=== PATIENT | male | born 1960 | race Caucasian/White ===

== ENCOUNTER 2022-04-25 09:09 | Inpatient (IN) ==
[2022-04-25] MEDS ORDERED: HEPARIN SOD (PORCINE) 1000 UNIT/ML ONE (09:18)
[2022-04-25] MEDS ORDERED: TICAGRELOR 90 MG TAB ONE (09:18)
--- NOTE | 2022-04-25 09:25 | Emergency Department Note ---
Impression & Plan STEMI (ST elevation myocardial infarction), Leukocytosis ED Provider Note NAME: ALPA SUMMERS AGE: 61 SEX: M : 1960 ARRIVES VIA: Ambulance INFORMANT: Patient ED PROVIDER(S): Gato Diaz DO CHIEF COMPLAINT: chest pain HPI: Patient is a 61-year-old male who presents the ER who was working at [employer]. He started to get midsternal burning and some mild shortness of breath. He felt very sweaty and like he was going to pass out. He denies any belly pain with exception of some left lower quadrant pain going into his groin. He notes groin swelling for over a month. This been present for some time. Denies any dysuria, urgency, or frequency. He has not followed up with or seen a doctor in over 10 years. Pain is currently a 4 out of 10. No other exacerbating or remitting factors. He was given aspirin prior to arrival. ROS: See above HPI for pertinent positives & negatives. A total of 10 systems reviewed and were otherwise negative. PAST MEDICAL HISTORY:See Below PAST SURGICAL HISTORY:See Below FAMILY HISTORY:See Below SOCIAL HISTORY:See Below HOME MEDICATIONS:See Below ALLERGIES:See Below VITALS:See Below PHYSICAL EXAMINATION: GENERAL: Sitting up in bed, alert, well appearing, well nourished, no distress, non-toxic EYE EXAM: normal conjunctiva. OROPHARYNX: no exudate, no erythema, lips, buccal mucosa, and tongue normal and mucous membranes are moist NECK: supple, no nuchal rigidity, no adenopathy, non-tender LUNGS: Clear to auscultation. Normal chest wall mechanics HEART: no murmurs, S1 normal and S2 normal ABDOMEN: abdomen soft, non-tender, normo-active bowel sounds, no masses, no rebound or guarding. : Swelling of the scrotum likely secondary to her hernia UPPER EXTREMITIES: upper extremities are grossly normal. LOWER EXTREMITIES: No pitting edema. Calves are equal bilateral NEURO EXAM: Normal sensorium, cranial nerves II-XII grossly intact, normal speech, no gross weakness of arms, no gross weakness of legs. MEDICAL DECISION MAKING: Patient is a 61-year-old male who received medical command call with exertional chest pain abnormal EKG. Initially did not meet STEMI criteria. Upon arrival EMS did repeat an EKG and on my evaluation it was consistent with a STEMI in the inferior leads. Heart alert was called. Spoke with the pediatric medical assistant on 2 separate occasions. He was agreeable with heparin as well as aspirin which was already given and Brilinta. Pads were placed and he was observed in the ER until they are ready for him to [facility]. He was taken upstairs emergently. Labs showed mild leukocytosis of 14,000. No significant anemia. BMP with a slightly elevated glucose at 113. LFTs and bilirubin were unremarkable. TSH and lipase were normal. COVID was negative. Chest x-ray was unremarkable. Discussed with Dr. Levy who recommended transferring to the [facility] on the second discussion as he was about 3 to 4 minutes out. Triage Nursing notes reviewed. Limited review of prior medical records performed Vital Signs: reviewed and remarkable for no significant abnormalities Differential diagnosis: Differential diagnoses includes but is not limited to acute coronary syndrome, myocardial infarction, pericarditis, pulmonary embolus, aortic dissection, pneumonia, pneumothorax, musculoskeletal, shingles, esophageal. ER treatment provided: See below Diagnostics interpreted by me: ECG: Sinus rhythm rate of 65 ST segment elevations in the inferior leads with depressions and T wave inversions in the high lateral leads as well as septal leads consistent with an inferior STEMI. QTc 399 No old to compare to Cardiac Monitoring: An order was placed for continuous cardiac monitoring. The monitor shows a rate of 70 with sinus rhythm. Laboratory studies: As stated above and show below. Imaging studies: Portable AP upright 1 view of the chest was unremarkable Consultation(s): Discussed with pediatric medical assistant Dr. Levy Procedures: none Critical Care: I have personally spent 35 minutes of critical care time in the direct management of this patient. This includes bedside care, interpretation of diagnostic studies, and testing, discussion with consultants, patient, and family members, and other required patient management activities. This 35 minutes is in excess of all separately billable procedures. 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 [employer] Feels Safe at Home: Yes Safety Concerns: Feels Safe At This Time Allergies Allergies Allergy/AdvReac Type Severity Reaction Status Date / Time No Known Allergies Allergy Verified 04/25/22 12:57 Home Meds Home Medications Medication Instructions Recorded Confirmed No Known Home Medications 04/25/22 04/25/22 Results & Data (ED) Vital Signs Vital Signs - 24 hr 04/25/22 09:16 04/25/22 09:17 04/25/22 09:27 Temperature 36.8 C Temperature Source Oral Pulse Rate 67 67 Pulse Rate [Finger] 70 Pulse Rate from SpO2 Sensor 65 Pulse Rhythm [Finger] Pulse Strength [Finger] Respiratory Rate 23 20 18 Respiratory Effort / Characteristics Respiratory Depth Respiratory Pattern Blood Pressure 135/75 137/72 Blood Pressure [Left Arm] 135/75 Blood Pressure Mean 95 93 Blood Pressure Mean [Left Arm] 95 Blood Pressure Position [Left Arm] Pulse Oximetry 97 97 96 Pulse Oximetry [Left Index Finger] Oxygen Delivery Method Room Air Room Air Oxygen Delivery Method [Left Index Finger] Sepsis Recent Fever Within 48 Hours No Sepsis New/Unexplained Change in Mental Status No Sepsis Action Taken by Nursing No Action Required 04/25/22 09:30 04/25/22 09:41 04/25/22 09:45 Temperature Temperature Source Pulse Rate 67 66 66 Pulse Rate [Finger] 66 Pulse Rate from SpO2 Sensor 65 68 Pulse Rhythm [Finger] Pulse Strength [Finger] Respiratory Rate 26 H 19 25 H Respiratory Effort / Characteristics Respiratory Depth Respiratory Pattern Blood Pressure 120/71 110/73 Blood Pressure [Left Arm] 120/71 Blood Pressure Mean 87 85 Blood Pressure Mean [Left Arm] 87 Blood Pressure Position [Left Arm] Pulse Oximetry 95 95 Pulse Oximetry [Left Index Finger] Oxygen Delivery Method Room Air Oxygen Delivery Method [Left Index Finger] Sepsis Recent Fever Within 48 Hours Sepsis New/Unexplained Change in Mental Status Sepsis Action Taken by Nursing 04/25/22 10:49 04/25/22 11:11 04/25/22 11:15 Temperature Temperature Source Pulse Rate 85 81 Pulse Rate [Finger] Pulse Rate from SpO2 Sensor 83 84 Pulse Rhythm [Finger] Pulse Strength [Finger] Respiratory Rate 19 22 Respiratory Effort / Characteristics Respiratory Depth Respiratory Pattern Blood Pressure Blood Pressure [Left Arm] Blood Pressure Mean Blood Pressure Mean [Left Arm] Blood Pressure Position [Left Arm] Pulse Oximetry 94 93 Pulse Oximetry [Left Index Finger] 94 Oxygen Delivery Method Oxygen Delivery Method [Left Index Finger] Room Air Sepsis Recent Fever Within 48 Hours Sepsis New/Unexplained Change in Mental Status Sepsis Action Taken by Nursing 04/25/22 11:20 04/25/22 11:25 04/25/22 11:30 Temperature 36.7 C Temperature Source Oral Pulse Rate 79 82 82 Pulse Rate [Finger] 82 Pulse Rate from SpO2 Sensor 79 82 82 Pulse Rhythm [Finger] Regular Pulse Strength [Finger] Normal Respiratory Rate 19 13 17 Respiratory Effort / Characteristics Spontaneous Respiratory Depth Normal Respiratory Pattern Regular Blood Pressure 95/49 L 100/64 Blood Pressure [Left Arm] 95/49 L Blood Pressure Mean 64 69 Blood Pressure Mean [Left Arm] 64 Blood Pressure Position [Left Arm] Lying Pulse Oximetry 93 92 94 Pulse Oximetry [Left Index Finger] Oxygen Delivery Method Room Air Oxygen Delivery Method [Left Index Finger] Sepsis Recent Fever Within 48 Hours Sepsis New/Unexplained Change in Mental Status Sepsis Action Taken by Nursing 04/25/22 11:35 Temperature Temperature Source Pulse Rate 81 Pulse Rate [Finger] Pulse Rate from SpO2 Sensor 82 Pulse Rhythm [Finger] Pulse Strength [Finger] Respiratory Rate 22 Respiratory Effort / Characteristics Respiratory Depth Respiratory Pattern Blood Pressure 100/64 Blood Pressure [Left Arm] Blood Pressure Mean 76 Blood Pressure Mean [Left Arm] Blood Pressure Position [Left Arm] Pulse Oximetry 93 Pulse Oximetry [Left Index Finger] Oxygen Delivery Method Oxygen Delivery Method [Left Index Finger] Sepsis Recent Fever Within 48 Hours Sepsis New/Unexplained Change in Mental Status Sepsis Action Taken by Nursing Laboratory Data Result diagrams: 04/25/22 09:26 04/25/22 12:24 Lab Results 04/25/22 04/25/22 04/25/22 Range/Units 09:20 09:26 09:26 WBC 14.46 H (4.8-10.8) K/uL RBC 5.31 (4.7-6.1) M/uL Hgb 16.4 (14.0-18.0) g/dL Hct 47.7 (42-52) % MCV 89.8 (80-100) fL MCH 30.9 (25-34) pg MCHC 34.4 (32-36) g/dL RDW Std Deviation 44.9 (36.4-46.3) fL RDW Coeff of Patria 13.7 (11.5-14.5) % Plt Count 270 (130-400) K/uL MPV 10.1 (7.4-10.4) fL Immature Gran % (Auto) 0.4 % Neut % (Auto) 72.0 % Lymph % (Auto) 22.1 % [place] % (Auto) 4.4 % Eos % (Auto) 0.8 % Baso % (Auto) 0.3 % Neut # (Auto) 10.40 H (1.4-6.5) K/uL Lymph # (Auto) 3.19 (1.2-3.4) K/uL [place] # (Auto) 0.64 H (0.11-0.59) K/uL Eos # (Auto) 0.12 (0-0.5) K/uL Baso # (Auto) 0.05 (0-0.2) K/uL Immature Gran # (Auto) 0.06 H (0.00-0.02) K/uL Sodium 136 (136-145) mmol/L Potassium TNP Chloride 103 (98-107) mmol/L Carbon Dioxide 24 (21-32) mmol/L Anion Gap 9 (3-11) BUN 20 (6-23) mg/dl Creatinine 0.92 (0.6-1.4) mg/dl Est Cr Clr Drug Dosing 100.5 ml/min Est GFR ( Amer) 102.9 ml/min Est GFR (Non-Af Amer) 88.8 ml/min BUN/Creatinine Ratio 21.7 H (10-20) Glucose 145 H (70-99(Fasting)) mg/dl Calcium 9.5 (8.5-10.1) mg/dl Total Bilirubin 0.4 (0.2-1.0) mg/dl AST TNP ALT 29 (7-52) U/L Alkaline Phosphatase 113 H (34-104) U/L Troponin I High Sens 15.9 (0-20) pg/ml Total Protein 7.4 (6.0-8.3) gm/dl Albumin 4.4 (3.4-5.0) gm/dl Globulin 3.0 (2.5-4.0) gm/dl Albumin/Globulin Ratio 1.5 (0.9-2) Lipase 23 (11-82) U/L Nasal Screen MRSA (PCR) (Negative) SARS-CoV-2, RNA, NAAT NEGATIVE (NEGATIVE) 04/25/22 Range/Units 11:10 WBC (4.8-10.8) K/uL RBC (4.7-6.1) M/uL Hgb (14.0-18.0) g/dL Hct (42-52) % MCV (80-100) fL MCH (25-34) pg MCHC (32-36) g/dL RDW Std Deviation (36.4-46.3) fL RDW Coeff of Patria (11.5-14.5) % Plt Count (130-400) K/uL MPV (7.4-10.4) fL Immature Gran % (Auto) % Neut % (Auto) % Lymph % (Auto) % [place] % (Auto) % Eos % (Auto) % Baso % (Auto) % Neut # (Auto) (1.4-6.5) K/uL Lymph # (Auto) (1.2-3.4) K/uL [place] # (Auto) (0.11-0.59) K/uL Eos # (Auto) (0-0.5) K/uL Baso # (Auto) (0-0.2) K/uL Immature Gran # (Auto) (0.00-0.02) K/uL Sodium (136-145) mmol/L Potassium Chloride (98-107) mmol/L Carbon Dioxide (21-32) mmol/L Anion Gap (3-11) BUN (6-23) mg/dl Creatinine (0.6-1.4) mg/dl Est Cr Clr Drug Dosing ml/min Est GFR ( Amer) ml/min Est GFR (Non-Af Amer) ml/min BUN/Creatinine Ratio (10-20) Glucose (70-99(Fasting)) mg/dl Calcium (8.5-10.1) mg/dl Total Bilirubin (0.2-1.0) mg/dl AST ALT (7-52) U/L Alkaline Phosphatase (34-104) U/L Troponin I High Sens (0-20) pg/ml Total Protein (6.0-8.3) gm/dl Albumin (3.4-5.0) gm/dl Globulin (2.5-4.0) gm/dl Albumin/Globulin Ratio (0.9-2) Lipase (11-82) U/L Nasal Screen MRSA (PCR) Negative (Negative) SARS-CoV-2, RNA, NAAT (NEGATIVE) Administered Medications Atorvastatin Calcium (Atorvastatin 40 Mg Tab) 40 mg PO QAM HAILEY Stop: 05/25/22 12:59 Last Admin: 04/25/22 14:11 Dose: 40 mg Documented by: [id number] Lactated Ringer's (Lr) 500 mls @ 125 mls/hr IV .Q4H ONE Stop: 04/25/22 17:46 Last Admin: 04/25/22 14:00 Dose: 125 mls/hr Documented by: [id number] Metoprolol Tartrate (Metoprolol Tartrate 25 Mg Tab) 25 mg PO BID [facility] Stop: 05/25/22 10:59 Last Admin: 04/25/22 13:44 Dose: Not Given Documented by: [id number] Discontinued Medications Atropine Sulfate (Atropine Sulfate 0.1 Mg/Ml 10ml Syr) Confirm Administered Dose 1 mg IV .STK-MED ONE Stop: 04/25/22 10:13 Last Admin: 04/25/22 10:47 Dose: Not Given Documented by: [id number] Atropine Sulfate (Atropine Sulfate 0.1 Mg/Ml 10ml Syr) Confirm Administered Dose 1 mg IV .STK-MED ONE Stop: 04/25/22 10:16 Last Admin: 04/25/22 10:47 Dose: 1 mg Documented by: [id number] Bivalirudin (Bivalirudin 250 Mg Vial ([employer] [employer] Only)) Confirm Administered Dose 250 mg .ROUTE .STK-MED ONE Stop: 04/25/22 10:17 Last Admin: 04/25/22 10:47 Dose: 250 mg Documented by: [id number] Dopamine HCl/Dextrose (Dopamine 400mg / 250ml D5w ([employer] [employer] Use Only)) Confirm Administered Dose 400 mg .ROUTE .STK-MED ONE Stop: 04/25/22 10:17 Last Admin: 04/25/22 10:48 Dose: 5 mcg.per.kg Documented by: [id number] Fentanyl Citrate (Fentanyl Citrate 100 Mcg/2 Ml Vial) Confirm Administered Dose 100 mcg .ROUTE .STK-MED ONE Stop: 04/25/22 09:36 Last Admin: 04/25/22 10:46 Dose: 50 mcg Documented by: [id number] Heparin Sodium (Porcine) (Heparin Sod (Porcine) 1000 Unit/Ml) Confirm Adminis tered Dose 1,000 units .ROUTE .STK-MED ONE Stop: 04/25/22 09:19 Last Admin: 04/25/22 09:24 Dose: 5,000 units Documented by: [id number] Cosigned by: [id number] Heparin Sodium (Porcine) (Heparin Sod (Porcine) 1000 Unit/Ml) 5,000 units IV NOW ONE Stop: 04/25/22 09:31 Last Admin: 04/25/22 09:29 Dose: Not Given Documented by: [id number] Heparin Sodium (Porcine) (Heparin (Porcine) 1000 Unit/Ml 10 Ml ([employer] Use Only)) Confirm Administered Dose 10,000 units .ROUTE .ST-MED ONE Stop: 04/25/22 09:36 Last Admin: 04/25/22 10:46 Dose: Not Given Documented by: [id number] Heparin Sodium/Sodium Chloride (Heparin In Nss Infusion 1000 Unit/500 Ml (2 U/Ml) Bag) Confirm Administered Dose 3,000 units IV .ST-MED ONE Stop: 04/25/22 09:37 Last Admin: 04/25/22 10:47 Dose: 3,000 units Documented by: [id number] Midazolam HCl (Midazolam Hcl 1 Mg/Ml 2ml Vial) Confirm Administered Dose 2 mg .ROUTE .ST-MED ONE Stop: 04/25/22 09:36 Last Admin: 04/25/22 10:46 Dose: 2 mg Documented by: [id number] Nicardipine HCl (Nicardipine Hcl Inj 2.5 Mg/Ml 10 Ml Amp) Confirm Administered Dose 25 mg .ROUTE .STK-MED ONE Stop: 04/25/22 09:36 Last Admin: 04/25/22 10:46 Dose: 25 mg Documented by: [id number] Nitroglycerin/Dextrose (Nitroglycerin/D5w 100mcg/Ml 20ml Syr) Confirm Administered Dose 2,000 mcg .ROUTE .STK-MED ONE Stop: 04/25/22 09:37 Last Admin: 04/25/22 10:47 Dose: 2,000 mcg Documented by: [id number] Ondansetron HCl (Ondansetron Inj 2 Mg/Ml 2 Ml Vial) Confirm Administered Dose 4 mg .ROUTE .STK-MED ONE Stop: 04/25/22 10:24 Last Admin: 04/25/22 10:48 Dose: 4 mg Documented by: [id number] Ticagrelor (Ticagrelor 90 Mg Tab) Confirm Administered Dose 180 mg .ROUTE .STK- MED ONE Stop: 04/25/22 09:19 Last Admin: 04/25/22 09:24 Dose: 180 mg Documented by: [id number] Ticagrelor (Ticagrelor 90 Mg Tab) 180 mg PO NOW ONE Stop: 04/25/22 09:31 Last Admin: 04/25/22 09:29 Dose: Not Given Documented by: [id number] Imaging Data Radiologist's Impression: Chest X-Ray 04/25/22 09:21 XR chest 1V portable HISTORY: 61 years-old Male Chest Pain acute atypical chest pain COMPARISON: None TECHNIQUE: Portable AP view of the chest FINDINGS: Cardiomediastinal and hilar silhouettes are within normal limits. Mild inter stitial coarsening of the lung bases may be chronic. There is no pneumothorax, pleural effusion, airspace consolidation or overt pulmonary edema. Bones of the chest appear grossly intact. Mild right hemidiaphragmatic elevation. IMPRESSION: No acute process. ACT 112: Negative or not required by law. The above report was generated using voice recognition software. It may contain grammatical, syntax or spelling errors. Electronically signed by: Robert Madison M.D. 04/25/2022 9:54 AM Discharge Plan Visit Data Chief Complaint: Chest Pain ED Provider: Gato Diaz Discharge Problem: STEMI (ST elevation myocardial infarction), Leukocytosis Patient Disposition: Admitted As Inpatient Discharge Instructions Interventions: ED Discharge Assessment Last Done: 04/25/22 09:47
[2022-04-25] MEDS ORDERED: TICAGRELOR 90 MG TAB PO ONE (09:30)
[2022-04-25] MEDS ORDERED: HEPARIN SOD (PORCINE) 1000 UNIT/ML IV ONE (09:30)
[2022-04-25] MEDS ORDERED: HEPARIN (PORCINE) 1000 UNIT/ML 10 ML (CATH LAB USE ONLY) ONE (09:35)
[2022-04-25] MEDS ORDERED: MIDAZOLAM HCL 1 MG/ML 2ML VIAL ONE (09:35)
[2022-04-25] MEDS ORDERED: niCARdipine HCL INJ 2.5 MG/ML 10 ML AMP ONE (09:35)
[2022-04-25] MEDS ORDERED: fentaNYL citrate 100 MCG/2 ML VIAL ONE (09:35)
[2022-04-25] MEDS ORDERED: NITROGLYCERIN/D5W 100MCG/ML 20ML SYR ONE (09:36)
[2022-04-25 09:51] LABS: Basophils # (auto) 0.05 K/uL (0-0.2); Basophils % (auto) 0.3 %; Eosinophils # (auto) 0.12 K/uL (0-0.5); Eosinophils % (auto) 0.8 %; Hematocrit (blood only) 47.7 % (42-52); Hemoglobin 16.4 g/dL (14.0-18.0); Immature Granulocytes # (auto) 0.06 K/uL (0.00-0.02); Immature Granulocytes % (auto) 0.4 %; Lymphocytes # (auto) 3.19 K/uL (1.2-3.4); Lymphocytes % (auto) 22.1 %; Mean Corpuscular Hemoglobin 30.9 pg (25-34); Mean Corpuscular Hgb Conc 34.4 g/dL (32-36); Mean Corpuscular Volume 89.8 fL (80-100); Mean Platelet Volume 10.1 fL (7.4-10.4); Monocytes # (auto) 0.64 K/uL (0.11-0.59); Monocytes % (auto) 4.4 %; Platelet Count 270 K/uL (130-400); RDW Coefficient of Variation 13.7 % (11.5-14.5); RDW Standard Deviation 44.9 fL (36.4-46.3); Red Blood Count 5.31 M/uL (4.7-6.1); White Blood Count 14.46 K/uL (4.8-10.8)
--- NOTE | 2022-04-25 09:55 | XRay Report ---
XR chest 1V portable HISTORY: 61 years-old Male Chest Pain acute atypical chest pain COMPARISON: None TECHNIQUE: Portable AP view of the chest FINDINGS: Cardiomediastinal and hilar silhouettes are within normal limits. Mild interstitial coarsening of the lung bases may be chronic. There is no pneumothorax, pleural effusion, airspace consolidation or ove rt pulmonary edema. Bones of the chest appear grossly intact. Mild right hemidiaphragmatic elevation. IMPRESSION: No acute process. ACT 112: Negative or not required by law. The above report was generated using voice recognition software. It may contain grammatical, syntax o r spelling errors. Electronically signed by: Robert Madison M.D. 04/25/2022 9:54 AM
--- NOTE | 2022-04-25 09:59 | Pre Anesthesia Assessment ---
Date of Service April 25, 2022 Pre Sedation Assessment Vital Signs Temp Pulse Pulse Resp BP BP Pulse Ox 04/25/22 09:41 66 20 120/71 94 04/25/22 09:27 70 18 135/75 96 04/25/22 09:17 36.8 C 67 20 137/72 97 Cardiovascular RRR, no murmur, no edema Respiratory normal respiratory effort, lungs clear to auscultation Pre-Sedation Airway Assessment Smoking Status: Current every day smoker III IV Notes The planned sedation has been discussed with the patient. Informed Consent was obtained. I have identified the patient, determined the appropriateness of sedation and have assessed the patient immediately prior to the procedure. All medicine(s) and interventions are by my order.
[2022-04-25] MEDS ORDERED: ATROPINE SULFATE 0.1 MG/ML 10ML SYR IV ONE ×2 (10:12→10:15)
[2022-04-25 10:16] LABS: Troponin I High Sensitivity 15.9 pg/ml (0-20)
[2022-04-25] MEDS ORDERED: BIVALIRUDIN 250 MG VIAL (CATH LAB ONLY) ONE (10:16)
[2022-04-25] MEDS ORDERED: DOPamine 400MG / 250ML D5W (Cath Lab Use ONLY) ONE (10:16)
[2022-04-25] MEDS ORDERED: ONDANSETRON INJ 2 MG/ML 2 ML VIAL ONE (10:23)
[2022-04-25 10:30] LABS: Albumin Level 4.4 gm/dl (3.4-5.0); Anion Gap 9 (3-11); Bilirubin,Total 0.4 mg/dl (0.2-1.0); Calcium 9.5 mg/dl (8.5-10.1); Carbon Dioxide 24 mmol/L (21-32); Chloride 103 mmol/L (98-107); Sodium 136 mmol/L (136-145)
[2022-04-25 10:36] LABS: Blood Urea Nitrogen 20 mg/dl (6-23); Est GFR (African American) 102.9 ml/min; Est GFR (Non-African American) 88.8 ml/min
[2022-04-25 10:37] LABS: Alanine Aminotransferase 29 U/L (7-52); Albumin Globulin Ratio 1.5 (0.9-2); Alkaline Phosphatase 113 U/L (34-104); BUN Creatinine Ratio 21.7 (10-20); Creatinine Clr Calc Pharmacy 100.5 ml/min; Glucose 145 mg/dl (70-99(Fasting)); Lipase 23 U/L (11-82); Total Protein 7.4 gm/dl (6.0-8.3)
--- NOTE | 2022-04-25 10:38 | Post Anesthesia Assessment ---
Date of Service April 25, 2022 Post Sedation Assessment Vital Signs Temp Pulse Pulse Resp BP BP Pulse Ox 04/25/22 09:41 66 20 120/71 94 04/25/22 09:27 70 18 135/75 96 04/25/22 09:17 36.8 C 67 20 137/72 97 Recovery Score Activity: Moves 4 extremities Respiration: Deep Breath/Cough Circulation: +/-20% PreAnes Value Consciousness: Fully Awake Oxygen Saturation: > 92% On Room Air Discharge Sedation Level of Care: Higher Level of Care Post Sedation Plan On clinical assessment, the patient appears to have tolerated the sedation without complications. Patient is recovering as anticipated. Patient will continue to be monitored by nursing and may be discharged when sedation discharge criteria are met per below protocol. Upon Completions of procedure up to 15 minutes continue every 5 minute vital signs and the P.A.R. score; then discharge to a Phase I or Fast Track to Phase II per the following guidelines: * Discharge Patient to appropriate Phase II area if PAR is 8 or greater or return to pre- procedure baseline. The post - procedure orders will be as directed. * If PAR score is less than 8 or not return to pre-procedure baseline then patient will follow Phase I monitoring till PAR is reached for Phase II. The Phase I may be done in procedure room or may call to secure a Phase I area. * If naloxone or flumazenil are used for reversal, hold in Phase I for continued monitoring from when last reversal dose was given for a minimum of 60 minutes or longer pending the nurse and/or physician discretion of patient condition before discharge to Phase II. Please call the Sedation Physician to re-evaluate and complete post-note for discharge to Phase II area. Do NOT discharge from procedure sedation or Phase 1 until post- sedation evaluation note is complete by procedure /sedation MD Sedation Discharge Instructions to be given to the patient at discharge to home.
--- NOTE | 2022-04-25 10:44 | Post Operative Brief Note ---
Cardiology Brief Post Op Date of Surgery April 25, 2022 Pre & Post Diagnosis Operation Date: 04/25/22 09:45 Left heart catheterization, coronary angiography, placement of drug-eluting stent in mid right coronary artery. Procedure Acute inferior ST elevation myocardial infarction, status post mid RCA intervention with placement of drug-eluting stent. 61-year-old gentleman presented to hospital with acute inferior ST elevation myocardial infarction. Cardiac catheterization revealed occluded mid right coronary artery, he had successful placement of a 4 mm drug-eluting stent with temple of KATIE-3 fl ow. Did have advanced heart block during the procedure, required temporary transvenous pacemaker along with intravenous atropine and dopamine. This pacemaker was removed after the procedure. He remains hemodynamically stable, alert and conscious and is not requiring any intravenous pressor support at this point. Jewel Grinder Frederic Levy MD Hat Conditioner none Estimated Blood Loss 10 Findings Consistent with Post-Op Diagnosis
--- NOTE | 2022-04-25 10:47 | Cardiac Catheterization ---
ACC Data: Tents Assembler Cardiac Status Clinical evaluation leading to the procedure CAD Presenation: STEMI Diagnostic Physicians Name: Frederic Levy MD Closure Device Recommendations: Medical Therapy and/or Counseling and PCI without planned CABG Cardiac Cath Procedure Full Procedure Date April 25, 2022 Pre-Procedure Diagnosis Pre-Procedure Diagnosis: STEMI AUC Score AUC Score: 9 Post-Procedure Diagnosis Post-Procedure Diagnosis: Successful PCI Procedure(s) Performed Procedure(s) Performed: Coronary Angiography and Drug Eluting Stent Director Business Frederic Levy MD Estimated Blood Loss Estimated Blood Loss: 10 Summary of Findings 61-year-old gentleman presented with acute inferior ST elevation myocardial infarction. Cardiac catheterization revealed occluded mid right coronary artery, he had successful intervention performed with placement of 4 mm drug-eluting stent, jew of KATIE-3 flow and resolution of his symptoms. Hemodynamics Rest Ao:: 102/70 Final Ao: 112/67 LV: not done Recommendations Recommendations: Medical Therapy and/or Counseling and PCI without planned CABG Radiation Exposure (mGy) 1143 Contrast (mls) 80 Procedural Complication(s) none I attest to the content of the Intraoperative Record and any orders documented therein. Any exceptions are noted below. PG Care Time/CCT Total # of Minutes Spent Total Time Spent with Patient: Total time spent is greater than 50% in coordination of care (as documented) at patient's floor/unit and/or counseling patient:
--- NOTE | 2022-04-25 11:28 | History & Physical Report ---
Date of Service April 25, 2022 Assessment & Plan (1) STEMI (ST elevation myocardial infarction): Plan: Presented with acute inferior STEMI, underwent urgent cardiac catheterization with stent placed to mid RCA. Required temporary transvenous pacing during procedure but heart block resolved. Repeat ECG much improved. Initial troponin negative. Hemodynamically stable. No evidence of heart failure. Right femoral cath site -Admit to ICU for post intervention management -Start dual antiplatelet therapy with aspirin and Brilinta -Start high intensity atorvastatin 40 mg daily and check lipid panel in the morning -Start metoprolol 25 Mg p.o. twice daily and titrate up as tolerated -Monitor on telemetry for arrhythmia -Keep electrolytes replete-check magnesium now -Trend troponin to peak -Check echocardiogram -Will also need MARVIN inhibitor added when blood pressure can tolerate -Counseled extensively on importance of smoking cessation -With mildly elevated glucose random here at 145-check hemoglobin A1c in the morning -Cardiology consult appreciated -Follow CBC, CMP, magnesium, phosphorus in the morning (2) Current smoker: Plan: Smoked 1 pack a day for over 45 years Counseled on cessation Pulmonology suspects COPD and has started him on Incruse Ellipta inhaler -Will need pulmonology follow-up and PFTs as an outpatient (3) Obesity (BMI 30-39.9): Plan: BMI 37.1 Needs weight loss (4) Elevated glucose: Plan: Check hemoglobin A1c in the morning Accu-Cheks and NovoLog with correction factor only of 30 (5) Elevated LFTs: Plan: AST and alkaline phosphatase mildly elevated Likely secondary to fatty liver given obesity Follow LFTs in the morning Consider outpatient liver ultrasound if not improving (6) Inguinal hernia: Plan: Large, left hemiscrotum. Occasionally symptomatic with heavy lifting Does not appear to be incarcerated Follow-up as an outpatient for elective hernia repair in 6 to [address] able from cardiac standpoint Discussed with patient Plan: DVT prophylaxis-SCDs Disposition-admit to ICU, can likely downgrade from ICU tomorrow if stable Patient is a DNR but is unsure about intubation so we will keep as a conditional code at this time with allowing for intubation for respiratory failure Patient will need to get established with a primary care physician after discharge. Nurse navigator can assist with this. History of Present Illness Chief Complaint: Chest pain Primary Care Provider: NO PCP This patient is a 61-year-old male with no known medical history has not seen a primary care physician in over 20 years. 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 He has been having a couple episodes of milder chest burning which he thought was indigestion over the last 2 days. He was brought in by EMS and was given aspirin prior to arrival. His ECG on arrival showed ST elevations in inferior leads with T wave inversions in anterior lateral leads consistent with an inferior STEMI. His vital signs were stable. He was taken to the cardiac catheterization lab after heart alert was called and catheterization revealed an occluded mid RCA for which successful intervention was performed with placement of a 4 mm drug-eluting stent. During the catheterization he had complete heart block and had a temporary transvenous pacer which was removed at the conclusion of the case. He was transferred to the ICU postprocedure and was in stable condition, not requiring any vasopressors. He reports no medical care at all. Smokes 1 pack/day and has a chronic cough. No recent fevers or chills, cold symptoms. No abdominal pains but does have a hernia in his scrotum that he has noticed for quite some time that gives him pain occasionally with heavy lifting. 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 He will be admitted for STEMI/acute coronary syndrome. Allergies Allergy/AdvReac Type Severity Reaction Status Date / Time No Known Allergies Allergy Verified 04/25/22 12:57 Home Medications Medication Instructions Recorded Confirmed Type No Known Home Medications 04/25/22 04/25/22 History Past Med/Surg History Medical History Current smoker Inguinal hernia Obesity (BMI 30-39.9) Surgical History No pertinent past surgical history Family History Other Diabetes Heart disease Stroke Social History (Updated 04/25/22 @ 13:09 by Carlotta Mckeon MD) Smoking Status: Current every day smoker Tobacco Type: Cigarettes Cigarettes Per Day: 20; Hx Alcohol Use: No Hx Substance Use: No Preferred Language: Samoan Clinical Education Coordinator Required: No Beliefs That Will Affect Care: None marital status: Current Living Situation: Alone current occupational status: employed current 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: 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 [employer] home Feels Safe at Home: Yes Safety Concerns: Feels Safe At This Time Review of Systems Review of Systems: All systems reviewed & are unremarkable except as noted in HPI & below Physical Exam Constitutional: WD/WN, vitals as above Eyes: PERRL, conjunctivae normal, anicteric sclerae ENMT: external ear and nose normal, oropharynx normal Neck: trachea midline, no thyromegaly Respiratory: normal respiratory effort, lungs clear to auscultation Cardiovascular: RRR, no murmur, no edema Vessels: dorsalis pedis pulses present (1+ left, 2+ right) Chest (Breasts): Chest: normal inspection of chest Gastrointestinal (Abdomen): normal bowel sounds, soft, nontender, no hepatosplenomegaly Inspection/Auscultation: + visible herniation (Large left inguinal hernia down into the scrotum,NT, difficult to reduce) Musculoskeletal: Extremities: extremities normal to inspection; no cyanosis and no clubbing Skin: no rashes, warm and dry Neurologic: moves all extremities and awake; no focal motor deficits Psychiatric: A+Ox3, euthymic affect Genitourinary: + hernia (As above); no penis abnormality Lymphatic: no lymphedema Results & Data Results & Data ([facility]) Vital Signs (Past 12 Hours) Vital Signs Temp Pulse Pulse Resp BP BP Pulse Ox 04/25/22 09:41 66 20 120/71 94 04/25/22 09:27 70 18 135/75 96 04/25/22 09:17 36.8 C 67 20 137/72 97 Laboratory Results 04/25/22 04/25/22 04/25/22 Range/Units 12:27 12:24 12:24 WBC (4.8-10.8) K/uL RBC (4.7-6.1) M/uL Hgb (14.0-18.0) g/dL Hct (42-52) % MCV (80-100) fL MCH (25-34) pg MCHC (32-36) g/dL RDW Std Deviation (36.4-46.3) fL RDW Coeff of Patria (11.5-14.5) % Plt Count (130-400) K/uL MPV (7.4-10.4) fL Immature Gran % (Auto) % Neut % (Auto) % Lymph % (Auto) % [place] % (Auto) % Eos % (Auto) % Baso % (Auto) % Neut # (Auto) (1.4-6.5) K/uL Lymph # (Auto) (1.2-3.4) K/uL [place] # (Auto) (0.11-0.59) K/uL Eos # (Auto) (0-0.5) K/uL Baso # (Auto) (0-0.2) K/uL Immature Gran # (Auto) (0.00-0.02) K/uL Sodium 137 (136-145) mmol/L Potassium 4.7 Chloride 106 (98-107) mmol/L Carbon Dioxide 23 (21-32) mmol/L Anion Gap 8 (3-11) BUN 22 (6-23) mg/dl Creatinine 0.92 (0.6-1.4) mg/dl Est Cr Clr Drug Dosing 100.5 ml/min Est GFR ( Amer) 102.9 ml/min Est GFR (Non-Af Amer) 88.8 ml/min BUN/Creatinine Ratio 23.9 H (10-20) Glucose 113 H (70-99(Fasting)) mg/dl POC Glucose 125 H (70-99) mg/dl Calcium 8.8 (8.5-10.1) mg/dl Phosphorus 2.7 (2.5-4.9) mg/dl Magnesium 2.1 (1.7-2.4) mg/dl Total Bilirubin (0.2-1.0) mg/dl AST ALT (7-52) U/L Alkaline Phosphatase (34-104) U/L Troponin I High Sens (0-20) pg/ml Total Protein (6.0-8.3) gm/dl Albumin (3.4-5.0) gm/dl Globulin (2.5-4.0) gm/dl Albumin/Globulin Ratio (0.9-2) Lipase (11-82) U/L TSH Pending Nasal Screen MRSA (PCR) (Negative) SARS-CoV-2, RNA, NAAT (NEGATIVE) 04/25/22 04/25/2204/25/22 Range/Units 12:24 11:10 09:26 WBC (4.8-10.8) K/uL RBC (4.7-6.1) M/uL Hgb (14.0-18.0) g/dL Hct (42-52) % MCV (80-100) fL MCH (25-34) pg MCHC (32-36) g/dL RDW Std Deviation (36.4-46.3) fL RDW Coeff of Patria (11.5-14.5) % Plt Count (130-400) K/uL MPV (7.4-10.4) fL Immature Gran % (Auto) % Neut % (Auto) % Lymph % (Auto) % [place] % (Auto) % Eos % (Auto) % Baso % (Auto) % Neut # (Auto) (1.4-6.5) K/uL Lymph # (Auto) (1.2-3.4) K/uL [place] # (Auto) (0.11-0.59) K/uL Eos # (Auto) (0-0.5) K/uL Baso # (Auto) (0-0.2) K/uL Immature Gran # (Auto) (0.00-0.02) K/uL Sodium 136 (136-145) mmol/L Potassium 4.7 TNP Chloride 103 (98-107) mmol/L Carbon Dioxide 24 (21-32) mmol/L Anion Gap 9 (3-11) BUN 20 (6-23) mg/dl Creatinine 0.92 (0.6-1.4) mg/dl Est Cr Clr Drug Dosing 100.5 ml/min Est GFR ( Amer) 102.9 ml/min Est GFR (Non-Af Amer) 88.8 ml/min BUN/Creatinine Ratio 21.7 H (10-20) Glucose 145 H (70-99(Fasting)) mg/dl POC Glucose (70-99) mg/dl Calcium 9.5 (8.5-10.1) mg/dl Phosphorus (2.5-4.9) mg/dl Magnesium (1.7-2.4) mg/dl Total Bilirubin 0.4 (0.2-1.0) mg/dl AST 79 H TNP ALT 29 (7-52) U/L Alkaline Phosphatase 113 H (34-104) U/L Troponin I High Sens 15.9 (0-20) pg/ml Total Protein 7.4 (6.0-8.3) gm/dl Albumin 4.4 (3.4-5.0) gm/dl Globulin 3.0 (2.5-4.0) gm/dl Albumin/Globulin Ratio 1.5 (0.9-2) Lipase 23 (11-82) U/L TSH Nasal Screen MRSA (PCR) Negative (Negative) SARS-CoV-2, RNA, NAAT (NEGATIVE) 04/25/22 04/25/22 Range/Units 09:26 09:20 WBC 14.46 H (4.8-10.8) K/uL RBC 5.31 (4.7-6.1) M/uL Hgb 16.4 (14.0-18.0) g/dL Hct 47.7 (42-52) % MCV 89.8 (80-100) fL MCH 30.9 (25-34) pg MCHC 34.4 (32-36) g/dL RDW Std Deviation 44.9 (36.4-46.3) fL RDW Coeff of Patria 13.7 (11.5-14.5) % Plt Count 270 (130-400) K/uL MPV 10.1 (7.4-10.4) fL Immature Gran % (Auto) 0.4 % Neut % (Auto) 72.0 % Lymph % (Auto) 22.1 % [place] % (Auto) 4.4 % Eos % (Auto) 0.8 % Baso % (Auto) 0.3 % Neut # (Auto) 10.40 H (1.4-6.5) K/uL Lymph # (Auto) 3.19 (1.2-3.4) K/uL [place] # (Auto) 0.64 H (0.11-0.59) K/uL Eos # (Auto) 0.12 (0-0.5) K/uL Baso # (Auto) 0.05 (0-0.2) K/uL Immature Gran # (Auto) 0.06 H (0.00-0.02) K/uL Sodium (136-145) mmol/L Potassium Chloride (98-107) mmol/L Carbon Dioxide (21-32) mmol/L Anion Gap (3-11) BUN (6-23) mg/dl Creatinine (0.6-1.4) mg/dl Est Cr Clr Drug Dosing ml/min Est GFR ( Amer) ml/min Est GFR (Non-Af Amer) ml/min BUN/Creatinine Ratio (10-20) Glucose (70-99(Fasting)) mg/dl POC Glucose (70-99) mg/dl Calcium (8.5-10.1) mg/dl Phosphorus (2.5-4.9) mg/dl Magnesium (1.7-2.4) mg/dl Total Bilirubin (0.2-1.0) mg/dl AST ALT (7-52) U/L Alkaline Phosphatase (34-104) U/L Troponin I High Sens (0-20) pg/ml Total Protein (6.0-8.3) gm/dl Albumin (3.4-5.0) gm/dl Globulin (2.5-4.0) gm/dl Albumin/Globulin Ratio (0.9-2) Lipase (11-82) U/L TSH Nasal Screen MRSA (PCR) (Negative) SARS-CoV-2, RNA, NAAT NEGATIVE (NEGATIVE) Diagnostic Findings Chest X-Ray 04/25/22 09:21 XR chest 1V portable HISTORY: 61 years-old Male Chest Pain acute atypical chest pain COMPARISON: None TECHNIQUE: Portable AP view of the chest FINDINGS: Cardiomediastinal and hilar silhouettes are within normal limits. Mild interstitial coarsening of the lung bases may be chronic. There is no pneumothorax, pleural effusion, airspace consolidation or overt pulmonary edema. Bones of the chest appear grossly intact. Mild right hemidiaphragmatic elevation. IMPRESSION: No acute process. ACT 112: Negative or not required by law. The above report was generated using voice recognition software. It may contain grammatical, syntax or spelling errors. Electronically signed by: Robert Madison M.D. 04/25/2022 9:54 AM ECG Additional Comments: As noted in HPI Code Status & VTE Plan Code Status DNR, but not sure if would want intubation at this time VTE Prophylaxis Plan VTE Prophylaxis will be ordered: Yes PG Care Time/CCT Total # of Minutes Spent Total Time Spent with Patient: Total time spent is greater than 50% in coordination of care (as documented) at patient's floor/unit and/or counseling patient: Coding Level of Care Code 94048 Initial Inpt Care Lvl 3 Diagnoses Current smoker F17.200 STEMI (ST elevation myocardial infarction) I21.3 Obesity (BMI 30-39.9) E66.9 Inguinal hernia K40.90 Elevated glucose R73.09 Elevated LFTs R79.89
[2022-04-25] MEDS ORDERED: GLUCOSE 40% GEL 15 GM TUBE PO PRN (11:42)
[2022-04-25] MEDS ORDERED: POLYETHYLENE (MIRALAX) 17 GM PACK PO PRN (11:42)
[2022-04-25] MEDS ORDERED: GLUCAGON FOR INJ 1 MG VIAL SQ PRN (11:42)
[2022-04-25] MEDS ORDERED: DEXTROSE 50% 50 ML SYRINGE IV PRN (11:42)
[2022-04-25] MEDS ORDERED: GLUCOSE 10 TABS/TUBE PO PRN (11:42)
[2022-04-25] MEDS ORDERED: CARBOHYDRATES FOR HYPOGLYCEMIA PO PRN (11:42)
[2022-04-25] MEDS ORDERED: ICU PROTOCOL FOR HYPERGLYCEMIA PRN (11:42)
--- NOTE | 2022-04-25 12:04 | Critical Care Consultation ---
Date of Consultation April 25, 2022 Assessment & Plan (1) STEMI (ST elevation myocardial infarction): (2) Admitted to intensive care unit: (3) Current smoker: (4) Elevated troponin: Chest x-ray 04/25/2022 personally reviewed: Portable film, good inspiratory effort, bilateral costophrenic and cardiophrenic angles are clean, no clear nonicteric appreciated -- Acute STEMI S/p cardiac cath 1 stent placed in RCA Continue with aspirin,PGY 2 inhibitor, statin Resume beta-prudence and MARVIN inhibitor when patient is able to tolerated Transient complete heart block with hypotension in the Assortment Planner, had temporary pacemaker placed and dopamine started in the Assortment Planner. Both of them were discontinued prior to be patient being sent to ICU -- Current smoker Advised to quit Start the patient on Incruse to be used on a daily basis -- Probable SUZIE Outpatient polysomnography -- Obesity Advised lose with diet and exercise --Prophylaxis VTE: IPC GI: Pantoprazole Lines: Femoral sheath Diet: Cardiac Plan: Monitor for any signs of bradycardia/junctional rhythm Keep an eye on the blood pressure, can give IV fluid at the blood pressure starts to trend down. Trend EKG and troponin Discontinue the femoral sheath in couple of hours after making sure the patient does not go into junctional rhythm I have personally spent 37 minutes of critical care time in the direct management of this patient. This is a life/limb threatening event. This includes time spent evaluating patient, direct bedside care, chart review, placing orders, interpretation of diagnostic studies, discussion with consultants, patient, and family members, as well as other required patient management activities. This time is exclusive of all separately billable procedures, and teaching time and separate from and in addition to any other critical care service time. Please note the above document was generated using voice recognition software. It may contain grammatical, syntax or spelling errors. History of Present Illness Attending Physician: Frederic Levy MD History of Present Illness 61-year-old male presented to the hospital with complaints of shortness of breath, dizziness and diaphoresis Patient was found to have inferior wall OK He was taken to the Assortment Planner Is in the ICU post stent In the Assortment Planner patient had 1 RCA stent placed. He did have an episode of hypotension and bradycardia for which temporary pacemaker was placed and dopamine was started. Prior to coming to the ICU both temporary pacemaker as well as dopamine were stopped At the time of examination patient's daughter were in the room Map was 69, systolic blood pressure in the 100. Heart rate in the mid 70s He stated that he is feeling better since then. Denies any chest pain, no headache, no nausea, no vomiting, no shortness of breath Denies any abdominal pain. No dysuria, no diarrhea No fever or chills Social history: 24-[id number]-dawg smoking history currently smoking a pack a day. Social alcohol. 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 Allergies Allergy/AdvReac Type Severity Reaction Status Date / Time No Known Allergies Allergy Verified 04/25/22 12:57 Home Medications Medication Instructions Recorded Confirmed Type No Known Home Medications 04/25/22 04/25/22 History Patient History Medical History Current smoker Inguinal hernia Obesity (BMI 30-39.9) Surgical History No pertinent past surgical history Family History Other Diabetes Heart disease Stroke Social History (Updated 04/25/22 @ 13:09 by Carlotta Mckeon MD) Smoking Status: Current every day smoker Tobacco Type: Cigarettes Cigarettes Per Day: 20; Hx Alcohol Use: No Hx Substance Use: No Preferred Language: Ukrainian Chronometer Tester Required: No Beliefs That Will Affect Care: None marital status: Current Living Situation: Alone current occupational status: employed 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 Feels Safe at Home: Yes Safety Concerns: Feels Safe At This Time Review of Systems Review of Systems: All systems reviewed & are unremarkable except as noted in HPI & below Physical Exam Physical Exam: Constitutional: No acute distress HEENT: EOMI, PERRLA Respiratory system: Decreased antibiotic, no wheeze, no cough, positive crackles bilateral lower lobes CVS: S1-S2 positive, no murmurs or gallops Abdomen: Soft, nontender, nondistended, positive bowel sounds x4, obese, positive left inguinal hernia, nontender Extremities: +2 pulses bilaterally radialis/ dorsalis pedis, no cyanosis, no edema Neuro: Awake alert oriented x3 Psych: Normal mood and affect G/U: No Felix Skin: no rashes, warm and dry Lymphatic: no cervical or axillary lymphadenopathy Results & Data Results & Data ([facility]) Vital Signs (Past 12 Hours) Vital Signs Temp Pulse Pulse Resp BP BP Pulse Ox 04/25/22 11:20 36.4 C L 82 14 95/49 L 94 04/25/22 09:41 66 20 120/71 94 04/25/22 09:27 70 18 135/75 96 04/25/22 09:17 36.8 C 67 20 137/72 97 Laboratory Results 04/25/22 09:26 04/25/22 09:26 Coding Level of Care Code Critical Care 1st 30-74 mins Diagnoses STEMI (ST elevation myocardial infarction) I21.3 Admitted to intensive care unit Z78.9 Current smoker F17.200 Elevated troponin R77.8 Time Spent (min) 37
[2022-04-25 13:11] LABS: BUN Creatinine Ratio 23.9 (10-20); Calcium 8.8 mg/dl (8.5-10.1); Creatinine Clr Calc Pharmacy 100.5 ml/min; Est GFR (African American) 102.9 ml/min; Est GFR (Non-African American) 88.8 ml/min; Magnesium 2.1 mg/dl (1.7-2.4); Phosphorus 2.7 mg/dl (2.5-4.9); Potassium 4.7 mmol/L (3.5-5.1)
[2022-04-25] MEDS: METOPROLOL TARTRATE 25 MG TAB PO SCH ×2 (13:44→21:09)
[2022-04-25] MEDS ORDERED: LACTATED RINGER'S 500 ML IV ONE (13:47)
[2022-04-25] MEDS: ATORVASTATIN 40 MG TAB PO SCH (14:11)
[2022-04-25] MEDS: INSULIN ASPART PER UNIT SC SCH ×2 (17:21→21:06)
--- NOTE | 2022-04-25 17:34 | XCELERA ---
[id number]
[2022-04-25] MEDS: TICAGRELOR 90 MG TAB PO SCH (21:08)
[2022-04-26 06:00] LABS: Basophils # (auto) 0.02 K/uL (0-0.2); Basophils % (auto) 0.2 %; Eosinophils # (auto) 0.15 K/uL (0-0.5); Eosinophils % (auto) 1.2 %; Hematocrit (blood only) 42.1 % (42-52); Hemoglobin 14.4 g/dL (14.0-18.0); Immature Granulocytes # (auto) 0.06 K/uL (0.00-0.02); Immature Granulocytes % (auto) 0.5 %; Lymphocytes # (auto) 2.68 K/uL (1.2-3.4); Lymphocytes % (auto) 21.5 %; Mean Corpuscular Hemoglobin 31.5 pg (25-34); Mean Corpuscular Hgb Conc 34.2 g/dL (32-36); Mean Corpuscular Volume 92.1 fL (80-100); Mean Platelet Volume 10.2 fL (7.4-10.4); Monocytes # (auto) 0.91 K/uL (0.11-0.59); Monocytes % (auto) 7.3 %; Neutrophils # (auto) 8.66 K/uL (1.4-6.5); Neutrophils % (auto) 69.3 %; Platelet Count 254 K/uL (130-400); RDW Coefficient of Variation 13.9 % (11.5-14.5); RDW Standard Deviation 47.1 fL (36.4-46.3); Red Blood Count 4.57 M/uL (4.7-6.1); White Blood Count 12.48 K/uL (4.8-10.8)
[2022-04-26 07:10] LABS: Alanine Aminotransferase 35 U/L (7-52); Albumin Level 3.8 gm/dl (3.4-5.0); Alkaline Phosphatase 91 U/L (34-104); Anion Gap 7 (3-11); BUN Creatinine Ratio 26.5 (10-20); Bilirubin,Total 0.8 mg/dl (0.2-1.0); Blood Urea Nitrogen 26 mg/dl (6-23); Calcium 8.7 mg/dl (8.5-10.1); Carbon Dioxide 26 mmol/L (21-32); Chloride 104 mmol/L (98-107); Chol HDL Ratio 6.2 (0-5); Cholesterol 206 mg/dl (0-200); Creatinine Clr Calc Pharmacy 91.7 ml/min; Est GFR (African American) 95.4 ml/min; Est GFR (Non-African American) 82.3 ml/min; Glucose 108 mg/dl (70-99(Fasting)); HDL Cholesterol 33 mg/dl; Magnesium 2.2 mg/dl (1.7-2.4); Phosphorus 3.3 mg/dl (2.5-4.9); Sodium 137 mmol/L (136-145); Total Protein 6.5 gm/dl (6.0-8.3); Triglycerides 458 mg/dl (0-150); Troponin I High Sensitivity 22493.4 pg/ml (0-20)
[2022-04-26 07:57] LABS: Potassium 4.2 mmol/L (3.5-5.1)
--- NOTE | 2022-04-26 08:28 | Critical Care Progress Note ---
Date of Service April 26, 2022 Assessment & Plan (1) STEMI (ST elevation myocardial infarction): (2) Admitted to intensive care unit: (3) Current smoker: (4) Elevated troponin: Plan: Chest x-ray 04/25/2022 personally reviewed: Portable film, good inspiratory effort, bilateral costophrenic and cardiophrenic angles are clean, no clear nonicteric appreciated -- Acute STEMI S/p cardiac cath 1 stent placed in RCA Continue with aspirin, Brilinta, statin Resume beta-prudence and MARVIN inhibitor when patient is able to tolerated 2D echo 2D echo 04/25/2022: EF 50-55%, grade 1 diastolic dysfunction Transient complete heart block with hypotension in the Behavior Interventionist, had temporary pacemaker placed and dopamine started in the Behavior Interventionist. Both of them were discontinued prior to be patient being sent to ICU -- Current smoker Advised to quit Start the patient on Incruse to be used on a daily basis --Dyslipidemia Continue with statin Diet and exercise will be beneficial to the patient -- Probable SUZIE Outpatient polysomnography -- Obesity Advised lose with diet and exercise --Prophylaxis VTE: Lovenox GI: None Lines: Peripheral Diet: Cardiac Plan: In/out: +859, urine output not optimally measured I will give the patient LR 1 L at 125 mL/h Given the patient's blood pressure is on the softer side I will decrease the metoprolol dose to 12.5 every 12 with holding parameter Patient hemodynamically stable to be sent out of the ICU Dr. Luevano made aware Please note the above document was generated using voice recognition software. It may contain grammatical, syntax or spelling errors.Any formal questions or concerns about the content, text or information contained within the body of this dictation should be directly addressed to the provider for clarification. Admission and Anticipated Discharge Date Admission Date: April 25, 2022 Subjective Patient seen and examined at bedside. No acute distress, no events was overnight Denies any chest pain, no shortness of breath, no dizziness, no palpitation Tolerated diet without any issues No headache Review of Systems Review of Systems: All systems reviewed & are unremarkable except as noted in Subjective Physical Exam Physical Exam: Constitutional: No acute distress HEENT: EOMI, PERRLA Respiratory system: Decreased air entry bilaterally, no wheeze, no cough, positive crackles bilateral lower lobes CVS: S1-S2 positive, no murmurs or gallops Abdomen: Soft, nontender, nondistended, positive bowel sounds x4, obese, positive left inguinal hernia, nontender Extremities: +2 pulses bilaterally radialis/ dorsalis pedis, no cyanosis, +1 pitting edema Neuro: Awake alert oriented x3 Psych: Normal mood and affect G/U: No Felix Skin: no rashes, warm and dry Lymphatic: no cervical or axillary lymphadenopathy Results & Data Results & Data ([facility]) Vital Signs (Past 12 Hours) Vital Signs Temp Pulse Resp BP Pulse Ox 04/26/22 08:00 62 04/26/22 07:30 62 04/26/22 06:20 62 24 95 04/26/22 06:10 61 24 94 04/26/22 06:00 60 22 97/60 L 96 04/26/22 05:50 60 22 93 04/26/22 05:40 61 25 H 95 04/26/22 05:32 74 14 87 L 04/26/22 05:25 36.5 C 04/26/22 05:20 63 24 93 04/26/22 05:10 59 L 19 04/26/22 05:00 60 17 90/47 L 04/26/22 04:50 62 20 04/26/22 04:40 63 17 04/26/22 04:30 61 22 04/26/22 04:20 63 14 04/26/22 04:10 61 23 94 04/26/22 04:01 60 21 86/44 L 89 L 04/26/22 04:00 60 24 95 04/26/22 03:00 62 24 107/72 94 04/26/22 02:00 61 24 102/70 93 04/26/22 01:01 65 23 98/72 L 04/26/22 01:00 61 14 94 04/26/22 00:00 36.7 C 63 21 103/67 95 04/25/22 23:48 68 24 101/62 04/25/22 23:45 69 14 86/43 L 04/25/22 23:10 63 22 101/62 92 04/25/22 23:00 63 21 04/25/22 22:50 63 22 04/25/22 22:40 67 22 04/25/22 22:30 71 19 04/25/22 22:20 65 21 04/25/22 22:10 65 24 06/04/22 22:00 68 22 04/25/22 21:50 87 17 04/25/22 21:40 68 24 04/25/22 21:30 72 23 04/25/22 21:20 68 22 04/25/22 21:10 74 18 92 04/25/22 21:05 84 21 04/25/22 21:04 115/88 04/25/22 20:58 75 20 Laboratory Results 04/26/22 05:23 04/26/22 07:13 Coding Level of Care Code 44490 Subseq Hosp Care Lvl 3 Diagnoses STEMI (ST elevation myocardial infarction) I21.3 Involved coronary artery: unspecified coronary artery Admitted to intensive care unit Z78.9 Current smoker F17.200 Elevated troponin R77.8 (1) STEMI (ST elevation myocardial infarction) Involved coronary artery: unspecified coronary artery Qualified Code(s): I21.3 - ST elevation (STEMI) myocardial infarction of unspecified site
[2022-04-26] MEDS ORDERED: LACTATED RINGER'S 1,000 ML IV SCH (08:30)
--- NOTE | 2022-04-26 08:33 | Hospitalist Progress Note ---
Date of Service April 26, 2022 Assessment & Plan (1) STEMI (ST elevation myocardial infarction): Plan: Presented with acute inferior STEMI, underwent urgent cardiac catheterization with stent placed to mid RCA. Required temporary transvenous pacing during procedure but heart block resolved. Repeat ECG much improved. [place] [id number] - dual antiplatelet therapy with aspirin and Brilinta -Start high intensity atorvastatin 40 mg - metoprolol 25 Mg p.o. twice daily -preliminary echocardiogram normal left ventricular size with low normal systolic function and regional wall motion abnormalities in the inferior wall. right ventricle was normal size and function. -Counseled extensively on importance of smoking cessation - hemoglobin A1c will be run 04/27/22 -Cardiology consult following (2) Current smoker: Plan: Smoked 1 pack a day for over 45 years Counseled on cessation Pulmonology suspects COPD and has started him on Incruse Ellipta inhaler -Will need pulmonology follow-up and PFTs as an outpatient (3) Obesity (BMI 30-39.9): Plan: BMI 37.1 Needs weight loss (4) Elevated glucose: Plan: Check hemoglobin A1c in the morning Accu-Cheks and NovoLog with correction factor of 30 (5) Elevated LFTs: Plan: AST and alkaline phosphatase mildly elevated Likely secondary to fatty liver given obesity (6) Inguinal hernia: Plan: Large, left hemiscrotum. Occasionally symptomatic with heavy lifting Does not appear to be incarcerated Follow-up as an outpatient for elective hernia repair in 6 to 12 months after stable from cardiac standpoint Discussed with patient Plan: DVT prophylaxis-SCDs Patient is a DNR but is unsure about intubation so we will keep as a conditional code at this time with allowing for intubation for respiratory failure Patient will need to get established with a primary care physician after discharge. Nurse navigator can assist with this. Admission and Anticipated Discharge Date Admission Date: April 25, 2022 Subjective pt is doing well, has had no additional bradyarrhythmia, did not sleep well and is fatigued Review of Systems Review of Systems: Mild distress and fatigue no headache, no visual changes no speech or swallowing issues no chest pain, pressure or palpitations no shortness of breath, cough or wheezes no abdominal pain, nausea or vomiting, diarrhea or constipation no dysuria, hematuria or frequency no focal joint pain or swelling no back pain, CVA tenderness or radicular pain no bruising, bleeding or rashes no focal signs of weakness or numbness or altered sensation no complaints of anxiety or depression.. Physical Exam Physical Exam: The patient appeared well nourished and normally developed. Vital signs as documented. Head exam is normocephalic atraumatic Neck is without JVD, thyromegaly, or carotid bruits. Lungs are with some basilar rhonchi Cardiac exam, Rhythm is regular.. No murmurs, rubs or gallops. Abdominal exam reveals normal bowel sounds, soft non tender, no masses Extremities are nonedematous and both pedal pulses are present Neurologic exam is alert and oriented, no focal loss of strength or sensation Skin is without bruises or rashes Psychologically is without concerns for anxiety or depression.. Results & Data Results & Data ([facility]) Vital Signs (Past 12 Hours) Vital Signs Temp Pulse Resp BP Pulse Ox 04/26/22 08:00 62 04/26/22 07:30 62 04/26/22 06:20 62 24 95 04/26/22 06:10 61 24 94 04/26/22 06:00 60 22 97/60 L 96 04/26/22 05:50 60 22 93 04/26/22 05:40 61 25 H 95 04/26/22 05:32 74 14 87 L 04/26/22 05:25 97.7 F 04/26/22 05:20 63 24 93 04/26/22 05:10 59 L 19 04/26/22 05:00 60 17 90/47 L 04/26/22 04:50 62 20 04/26/22 04:40 63 17 04/26/22 04:30 61 22 04/26/22 04:20 63 14 04/26/22 04:10 61 23 94 04/26/22 04:01 60 21 86/44 L 89 L 04/26/22 04:00 60 24 95 04/26/22 03:00 62 24 107/72 94 04/26/22 02:00 61 24 102/70 93 04/26/22 01:01 65 23 98/72 L 04/26/22 01:00 61 14 94 04/26/22 00:00 98.1 F 63 21 103/67 95 04/25/22 23:48 68 24 101/62 04/25/22 23:45 69 14 86/43 L 04/25/22 23:10 63 22 101/62 92 04/25/22 23:00 63 21 04/25/22 22:50 63 22 04/25/22 22:40 67 22 04/25/22 22:30 71 19 04/25/22 22:20 65 21 04/25/22 22:10 65 24 04/25/22 22:00 68 22 04/25/22 21:50 87 17 04/25/22 21:40 68 24 04/25/22 21:30 72 23 04/25/22 21:20 68 22 04/25/22 21:10 74 18 92 04/25/22 21:05 84 21 04/25/22 21:04 115/88 04/25/22 20:58 75 20 PG Care Time/CCT Total # of Minutes Spent Total Time Spent with Patient: Total time spent is greater than 50% in coordination of care (as documented) at patient's floor/unit and/or counseling patient: Coding Level of Care Code 67368 Subseq Hosp Care Lvl 2 Diagnoses STEMI (ST elevation myocardial infarction) I21.3 Involved coronary artery: unspecified coronary artery Current smoker F17.200 Obesity (BMI 30-39.9) E66.9 Elevated glucose R73.09 Elevated LFTs R79.89 Inguinal hernia K40.90 (1) STEMI (ST elevation myocardial infarction) Involved coronary artery: unspecified coronary artery Qualified Code(s): I21.3 - ST elevation (STEMI) myocardial infarction of unspecified site
--- NOTE | 2022-04-26 08:38 | Electrocardiogram Report ---
Test Reason : Blood Pressure : / mmHG Vent. Rate : 065 BPM Atrial Rate : 065 BPM P-R Int : 202 ms QRS Dur : 104 ms QT Int : 384 ms P-R-T Axes : 055 061 106 degrees QTc Int : 399 ms Poor data quality, interpretation may be adversely affected Normal sinus rhythm ST elevation consider inferior injury or acute infarct ACUTE CA / STEMI Consider right ventricular involvement in acute inferior infarct Abnormal ECG No previous ECGs available Confirmed by Gus Garland ([id number]) on 04/26/2022 8:37:27 AM Referred By: Carlotta Mckeon Confirmed By:Gus Garland
--- NOTE | 2022-04-26 08:42 | Electrocardiogram Report ---
Test Reason : Blood Pressure : / mmHG Vent. Rate : 084 BPM Atrial Rate : 084 BPM P-R Int : 186 ms QRS Dur : 108 ms QT Int : 386 ms P-R-T Axes : 046 035 079 degrees QTc Int : 456 ms Normal sinus rhythm Inferior infarct , age undetermined Abnormal ECG When compared with ECG of 25-APR-2022 09:15, (unconfirmed) Serial changes of evolving Inferior infarct QT has lengthened Confirmed by Gus Garland ([id number]) on 04/26/2022 8:42:34 AM Referred By: Carlotta Mckeon Confirmed By:Gus Garland
[2022-04-26] MEDS: INSULIN ASPART PER UNIT SC SCH ×4 (08:48→21:19)
[2022-04-26] MEDS: METOPROLOL TARTRATE 25 MG TAB PO SCH ×2 (09:12→21:19)
[2022-04-26] MEDS: TICAGRELOR 90 MG TAB PO SCH ×2 (09:13→21:19)
[2022-04-26] MEDS: ASPIRIN 81 MG ECTAB PO SCH (09:13)
[2022-04-26] MEDS: ATORVASTATIN 40 MG TAB PO SCH (09:13)
[2022-04-26] MEDS: UMECLIDINIUM BROMIDE 62.5MCG/BLISTER 7 PUFFS/INHALER INH SCH (09:14)
--- NOTE | 2022-04-26 09:41 | Cardiology Progress Note ---
Date of Service April 26, 2022 Assessment & Plan (1) STEMI (ST elevation myocardial infarction): (2) CAD (coronary artery disease): (3) Hypercholesterolemia: (4) Current smoker: (5) Obesity (BMI 30-39.9): Plan: 1. Acute inferior myocardial infarction: He presented with an acute inferior myocardial infarction which was successfully treated with right coronary artery angioplasty and stent placement. His echocardiogram showed some wall motion abnormalities but an overall preserved left ventricular function. His troponin peaked at over 35,000 and he did have some AV conduction abnormalities during the procedure but not afterwards. He is only on 12.5 mg twice a day of metoprolol due to borderline hypotension. 2. Coronary artery disease: He does have left system disease which is probably significant (by verbal report) and may need to be treated with a staged procedure. This will be evaluated Wednesday. 3. Hypercholesterolemia: He does have a moderately elevated cholesterol (206) and significant hypertriglyceridemia (over 400) and will need to be on statin therapy. He is now on atorvastatin 40 mg daily which I would continue for now, if he tolerates this we can increase it to 80 mg daily in the future as an outpatient. He may need triglyceride control as well but I would see how he does with statin therapy before starting anything for that. He can also work on his diet and lose weight. 4. Tobacco abuse: He will need to quit using tobacco and he understands that. 5. Obesity: He should lose weight, a heart healthy diet would probably help a great deal and he should be on that at this point. Admission and Anticipated Discharge Date Admission Date: April 25, 2022 Subjective This is a 61-year-old male with a history of obesity and tobacco abuse who has not followed with the medical system for quite a few years. 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 He was having an inferior myocardial infarction and was taken urgently to [facility] where an occluded mid right coronary artery was identified. This was successfully dilated and stented. He did have some AV conduction abnormalities during the procedure but none afterwards. He does have disease in other vessels which may need to be approached as a staged procedure. His high-sensitivity troponin peaked at over 38,000 and his cholesterol is moderately elevated with his triglycerides being significantly elevated. An echocardiogram done following the procedure showed normal left ventricular size with low normal systolic function and regional wall motion abnormalities in the inferior wall. The right ventricle was normal size and function. He is laying supine in bed this morning, he has no cardiovascular complaints including chest discomfort, shortness of breath or palpitations. So far he seems to be tolerating his medications well although his blood pressure is a little bit low but he is not having symptoms. His metoprolol was reduced to 12- 1/2 mg twice a day. Physical Exam Physical Exam: Constitutional: Alert, cooperative and in no distress. Pulmonary: Clear to auscultation bilaterally. Cardiac: Regular rhythm with no murmur, gallop or rub. Abdomen: Soft, nontender with normal bowel sounds. Extremities: No edema. Skin: No rash, ecchymoses or petechiae. Results & Data ([facility]) Vital Signs (Past 12 Hours) Vital Signs Temp Pulse Resp BP Pulse Ox 04/26/22 08:00 62 04/26/22 07:30 62 04/26/22 06:20 62 24 95 04/26/22 06:10 61 24 94 04/26/22 06:00 60 22 97/60 L 96 04/26/22 05:50 60 22 93 04/26/22 05:40 61 25 H 95 04/26/22 05:32 74 14 87 L 04/26/22 05:25 36.5 C 04/26/22 05:20 63 24 93 04/26/22 05:10 59 L 19 04/26/22 05:00 60 17 90/47 L 04/26/22 04:50 62 20 04/26/22 04:40 63 17 04/26/22 04:30 61 22 04/26/22 04:20 63 14 04/26/22 04:10 61 23 94 04/26/22 04:01 60 21 86/44 L 89 L 04/26/22 04:00 60 24 95 04/26/22 03:00 62 24 107/72 94 04/26/22 02:00 61 24 102/70 93 04/26/22 01:01 65 23 98/72 L 04/26/22 01:00 61 14 94 04/26/22 00:00 36.7 C 63 21 103/67 95 04/25/22 23:48 68 24 101/62 04/25/22 23:45 69 14 86/43 L 04/25/22 23:10 63 22 101/62 92 04/25/22 23:00 63 21 04/25/22 22:50 63 22 04/25/22 22:40 67 22 04/25/22 22:30 71 19 04/25/22 22:20 65 21 04/25/22 22:10 65 24 04/25/22 22:00 68 22 04/25/22 21:50 87 17 04/25/22 21:40 68 24 Laboratory Results Cardiac Enzymes 04/25/22 04/25/22 04/25/22 Range/Units 09:26 12:24 15:30 AST TNP 79 H Troponin I High Sens 15.9 55392.5 H* D (0-20) pg/ml 04/25/22 04/26/22 04/26/22 Range/Units 21:29 05:23 07:13 AST TNP 99 H Troponin I High Sens 92203.1 H* 47228.4 H* D (0-20) pg/ml Lipids 04/26/22 Range/Units 05:23 Triglycerides 458 H (0-150) mg/dl Cholesterol 206 H (0-200) mg/dl HDL Cholesterol 33 mg/dl Cholesterol/HDL Ratio 6.2 H (0-5) CBC 04/25/22 04/26/22 Range/Units 09:26 05:23 WBC 14.46 H 12.48 H (4.8-10.8) K/uL RBC 5.31 4.57 L (4.7-6.1) M/uL Hgb 16.4 14.4 (14.0-18.0) g/dL Hct 47.7 42.1 (42-52) % Plt Count 270 254 (130-400) K/uL Neut # (Auto) 10.40 H 8.66 H (1.4-6.5) K/uL Lymph # (Auto) 3.19 2.68 (1.2-3.4) K/uL Wheeler # (Auto) 0.64 H 0.91 H (0.11-0.59) K/uL Eos # (Auto) 0.12 0.15 (0-0.5) K/uL Baso # (Auto) 0.05 0.02 (0-0.2) K/uL Comprehensive Metabolic Panel 04/25/22 04/25/22 04/25/22 Range/Units 09:26 12:24 12:24 Sodium 136 137 (136-145) mmol/L Potassium TNP 4.7 4.7 Chloride 103 106 (98-107) mmol/L Carbon Dioxide 24 23 (21-32) mmol/L BUN 20 22 (6-23) mg/dl Creatinine 0.92 0.92 (0.6-1.4) mg/dl Glucose 145 H 113 H (70-99(Fasting)) mg/dl Calcium 9.5 8.8 (8.5-10.1) mg/dl Direct Bilirubin AST TNP 79 H ALT 29 (7-52) U/L Alkaline Phosphatase 113 H (34-104) U/L Total Protein 7.4 (6.0-8.3) gm/dl Albumin 4.4 (3.4-5.0) gm/dl 04/26/22 04/26/22 Range/Units 05:23 07:13 Sodium 137 (136-145) mmol/L Potassium TNP 4.2 Chloride 104 (98-107) mmol/L Carbon Dioxide 26 (21-32) mmol/L BUN 26 H (6-23) mg/dl Creatinine 0.98 (0.6-1.4) mg/dl Glucose 108 H (70-99(Fasting)) mg/dl Calcium 8.7 (8.5-10.1) mg/dl Direct Bilirubin TNP 0.0 AST TNP 99 H ALT 35 (7-52) U/L Alkaline Phosphatase 91 (34-104) U/L Total Protein 6.5 (6.0-8.3) gm/dl Albumin 3.8 (3.4-5.0) gm/dl Intake and Output 04/25/22 04/26/22 04/26/22 22:59 06:59 14:59 Intake Total 860 / 860 Output Total Balance 860 / 860 - Intake: IV 500 / 500 Lactated Ringer's 500 ml @ 125 500 / 500 mls/hr IV .Q4H ONE Rx#:[id number] Oral 360 / 360 Output: # Bowel Movements Other: # Unmeasured Voids 2 1 Weight 104.7 kg Weight Measurement Method Built in Bedscale Diagnostic Findings Telemetry: Sinus rhythm, no significant arrhythmia PG Care Time/CCT Total # of Minutes Spent Total Time Spent with Patient: Total time spent is greater than 50% in coordination of care (as documented) at patient's floor/unit and/or counseling patient: Coding Level of Care Code 09439 Subseq Hosp Care Lvl 3 Diagnoses STEMI (ST elevation myocardial infarction) I21.11 Involved coronary artery: right coronary artery CAD (coronary artery disease) I25.10 Associated angina: without angina Coronary Disease-Associated Artery/Lesion type: [place] artery [place] vs. transplanted heart: [place] heart Hypercholesterolemia E78.00 Current smoker F17.200 Obesity (BMI 30-39.9) E66.9 (1) CAD (coronary artery disease) Associated angina: without angina Coronary Disease-Associated Artery/Lesion type: [place] artery [place] vs. transplanted heart: [place] heart Qualified Code(s): I25.10 - Atherosclerotic heart disease of [place] coronary artery without angina pectoris (2) STEMI (ST elevation myocardial infarction) Involved coronary artery: right coronary artery Qualified Code(s): I21.11 - ST elevation (STEMI) myocardial infarction involving right coronary artery
[2022-04-26] MEDS: ENOXAPARIN INJ 40 MG/0.4 ML SYR SQ SCH (12:16)
[2022-04-27 06:44] LABS: Estimated Average Glucose 126 mg/dl
[2022-04-27] MEDS: INSULIN ASPART PER UNIT SC SCH ×2 (07:33→11:15)
[2022-04-27 07:50] LABS: Basophils # (auto) 0.03 K/uL (0-0.2); Basophils % (auto) 0.3 %; Eosinophils # (auto) 0.18 K/uL (0-0.5); Eosinophils % (auto) 1.8 %; Hematocrit (blood only) 44.2 % (42-52); Immature Granulocytes # (auto) 0.05 K/uL (0.00-0.02); Immature Granulocytes % (auto) 0.5 %; Lymphocytes % (auto) 28.2 %; Mean Corpuscular Hemoglobin 30.2 pg (25-34); Mean Corpuscular Hgb Conc 33.9 g/dL (32-36); Mean Corpuscular Volume 89.1 fL (80-100); Mean Platelet Volume 10.1 fL (7.4-10.4); Neutrophils # (auto) 6.26 K/uL (1.4-6.5); Neutrophils % (auto) 63.2 %; Nucleated RBC # (auto) 0.04 K/uL (0-0); Nucleated RBC % (auto) 0.4 %; Platelet Count 242 K/uL (130-400); RDW Coefficient of Variation 13.9 % (11.5-14.5); RDW Standard Deviation 44.9 fL (36.4-46.3); Red Blood Count 4.96 M/uL (4.7-6.1); White Blood Count 9.92 K/uL (4.8-10.8)
[2022-04-27 08:16] LABS: Albumin Level 3.9 gm/dl (3.4-5.0); BUN Creatinine Ratio 23.7 (10-20); Bilirubin,Total 0.7 mg/dl (0.2-1.0); Calcium 8.9 mg/dl (8.5-10.1); Est GFR (African American) 113.3 ml/min; Est GFR (Non-African American) 97.8 ml/min; Magnesium 1.7 mg/dl (1.7-2.4); Potassium 4.1 mmol/L (3.5-5.1); Total Protein 6.7 gm/dl (6.0-8.3)
[2022-04-27] MEDS: METOPROLOL TARTRATE 25 MG TAB PO SCH (08:50)
[2022-04-27] MEDS: UMECLIDINIUM BROMIDE 62.5MCG/BLISTER 7 PUFFS/INHALER INH SCH (08:50)
[2022-04-27] MEDS: TICAGRELOR 90 MG TAB PO SCH (08:50)
[2022-04-27] MEDS: ATORVASTATIN 40 MG TAB PO SCH (08:50)
[2022-04-27] MEDS: ASPIRIN 81 MG ECTAB PO SCH (08:51)
[2022-04-27] MEDS: ENOXAPARIN INJ 40 MG/0.4 ML SYR SQ SCH (08:51)
--- NOTE | 2022-04-27 14:49 | Discharge Summary ---
Date of Service April 27, 2022 Admission HPI Per Admitting Provider This patient is a 61-year-old male with no known medical history has not seen a primary care physician in over 20 years. 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 He has been having a couple episodes of milder chest burning which he thought was indigestion over the last 2 days. He was brought in by EMS and was given aspirin prior to arrival. His ECG on arrival showed ST elevations in inferior leads with T wave inversions in anterior lateral leads consistent with an inferior STEMI. His vital signs were stable. He was taken to the cardiac catheterization lab after heart alert was called and catheterization revealed an occluded mid RCA for which successful intervention was performed with placement of a 4 mm drug-eluting stent. During the catheterization he had complete heart block and had a temporary transvenous pacer which was removed at the conclusion of the case. He was [facility] ICU postprocedure and was in stable condition, not requiring any vasopressors. He reports no medical care at all. Smokes 1 pack/day and has a chronic cough. No recent fevers or chills, cold symptoms. No abdominal pains but does have a hernia in his scrotum that he has noticed for quite some time that gives him pain occasionally with heavy lifting. 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 He will be admitted for STEMI/acute coronary syndrome. Principal Diagnosis STEMI Transient heart block Non Occlusive coronary disease left coronary artery with future intervention planned Dyslipidemia Discharge Exam The patient appeared stable Vital signs as documented. Lungs are clear to auscultation and appear unlabored Cardiac exam, Rhythm is regular.. No murmurs, rubs or gallops. Abdominal exam reveals normal bowel sounds, soft non tender, no masses Extremities are nonedematous and both pedal pulses are normal. Neurologic exam is alert and oriented, no focal loss of strength or sensation Skin is without bruises or rashes Psychologically is without concerns for anxiety or depression. Discharge Data Allergies Allergy/AdvReac Type Severity Reaction Status Date / Time No Known Allergies Allergy Verified 04/25/22 12:57 Consultations 04/25/22 10:48 Consult Internal Medicine Routine 04/25/22 11:42 Consult Cardiology Routine Consult Systems Technologist Routine Procedures Performed Operation Date: 04/25/22 09:45 Actual Procedures s Cineradiography w/Routine Exam - Frederic Levy MD p Aspiration/PCI w/LAYLA for Stemi - Frederic Levy MD s Temporary Transcutaneous Pacing - MD merlyn Conte Cath, Coronaries ONLY (no LV) - MD merlyn Conte Placement Art Occlusive Device - Frederic Levy MD Ordered Studies 04/25/22 09:46 CL Cath Imgs for PACS use only Stat Hospital Course (1) STEMI (ST elevation myocardial infarction): Presented with acute inferior STEMI, underwent urgent cardiac catheterization with stent placed to mid RCA. Required temporary transvenous pacing during procedure but heart block resolved. Repeat ECG much improved. [place] [address] Abigail noted left coronary artery with some significant coronary disease plan on staged cardiac catheterization tentatively for May 01, 2022 patient be discharged home given as needed nitroglycerin and instructions to return - dual antiplatelet therapy with aspirin and Brilinta -Start high intensity atorvastatin 40 mg - metoprolol 25 Mg p.o. twice daily -preliminary echocardiogram normal left ventricular size with low normal systolic function and regional wall motion abnormalities in the inferior wall. right ventricle was normal size and function. -Counseled extensively on importance of smoking cessation - hemoglobin A1c will be run 04/27/22 -Cardiology consult plans on stage coronary intervention for May 01, 2022 (2) Current smoker: Smoked 1 pack a day for over 45 years Counseled on cessation Pulmonology suspects COPD and has started him on Incruse Ellipta inhaler -Will need pulmonology follow-up and PFTs as an outpatient (3) Obesity (BMI 30-39.9): BMI 37.1 Needs weight loss (4) Elevated glucose: Check hemoglobin A1c in the morning Accu-Cheks and NovoLog with correction factor of 30 (5) Elevated LFTs: AST and alkaline phosphatase mildly elevated Likely secondary to fatty liver given obesity (6) Inguinal hernia: Large, left hemiscrotum. Occasionally symptomatic with heavy lifting Does not appear to be incarcerated Follow-up as an outpatient for elective hernia repair in 6 to 12 months after stable from cardiac standpoint Discussed with patient DVT prophylaxis-SCDs Patient is a DNR but is unsure about intubation so we will keep as a conditional code at this time with allowing for intubation for respiratory failure Patient will need to get established with a primary care physician after discharge. Nurse navigator can assist with this. Total Time Total Time Spent Total Time Spent (In Minutes): It required greater than 30 minutes to prepare this patient for discharge Discharge Plan Discharge Items Patient Disposition: Home - Self-Care Reason For Visit: STEMI Discharge Diagnosis: heart attack, known as ST elevated Myocardial infarction intra coronary artery stent in the right coronary artery Activity: Per Instructions section Activity Comment: no intentional exercise until released by Cardiology Non-emergency contact: Primary Care Provider and Pediatric Oncologist Call non-emergency contact if: your symptoms worsen and you have a fever Follow-up/Referrals: PCP,NO [Primary Care Provider] - Diet: Heart Healthy Addtl Attending Provider Instructions: Please stop smoking Please have only limited activity until you return on wednesday05/01/22 for a repeat heart catheterization take all medications, avoid alcohol, and if you have recurrent chest pain or shortness of breath return immediately to the ER ACTIVITY RECOMMENDATIONS: * Keep the site of the procedure covered with a bandage for 24 hours. *You may shower the day after the procedure. Do not take a tub bath or submerge the puncture site in water for the next 3 days. *Do not operate any motorized equipment for 3 days. SPECIAL CARE INSTRUCTIONS: The site may be slightly bruised and sore following your procedure. Should any of the following occur, contact the Dr. who performed your procedure. 1. Redness/inflammation, swelling, chills, or fever, or colored drainage at procedure site within 3-7 days after your procedure. 2. Coldness, discoloration, ongoing numbness, severe pain, or swelling. Expect mild tingling of hand and tenderness at the puncture site for up to three days. If this persists beyond three days, or other symptoms develop, notify the Dr. who performed your procedure. BLEEDING: If the procedure site on your wrist begins to bleed, do not panic 1. Place 1 or 2 fingers firmly just slightly above the insertion site to stop the bleeding. You may be able to feel your pulse as you hold pressure. 2. Lift your finger after 5 minutes to see if the bleeding has stopped. 3. Once the bleeding has stopped, gently wipe the wrist area clean with a bandage. * If the bleeding does not stop after 10 minutes, or if there is a large amount of bleeding or spurting, call 911 (do not drive yourself to the hospital). SKIN IRRITATION: * You may experience some redness and/or swelling in the area where radiation was administered. If any skin irritation occurs, please contact your family physician. FOLLOW UP VISIT: Keep any scheduled doctor appointments. Pending Studies at Discharge: No Stand-Alone Forms: My [facility] Seen, Smoking Cessation Medications and DC Order Prescriptions: New Incruse Ellipta 62.5 mcg/actuation Blister With Device 1 inh inhalation DAILY Qty: 30 RF: 5 atorvastatin 40 mg Tablet 40 mg PO QAM Qty: 30 RF: 0 aspirin 81 mg Tablet,Delayed Release (Dr/Ec) 81 mg PO QAM Qty: 30 RF: 5 metoprolol tartrate 25 mg Tablet 12.5 mg PO BID Qty: 30 RF: 5 clopidogrel [Plavix] 75 mg tablet 75 mg PO DAILY Qty: 30 RF: 5 nitroglycerin 0.4 mg tablet, sublingual 0.4 mg sublingual Q5M Qty: 1 RF: 4 Discharge Orders: Discharge Order (Routine); Ordered 04/27/22 Ordered By: Yazan Lara/Other Patient Handouts: Prediabetes, 5 Steps for Eating Healthier Admission Data Admit Date/Time: 04/25/22 11:39 Attending Provider: Jose Manuel Reinoso Admit Provider: Carlotta Mckeon Primary Care Provider: PCP,NO Other Providers: Yobany Sparks ; Cintia Elmore ; Zeferino Lyn ; Deangelo Arreguin ; Yazan Luevano ; Gato Vega ; Luis Schuler ; Carlotta Mckeon ; Jin Weinstein ; Leila Winn ; Jorge L Sepulveda ; Ru Leach ; Abbie Patino ; Maite Melendez ; Joshua Barboza ; Cintia Galdamez ; Joseph Aguilera ; Bridget Anna ; Lexa Genao ; Zeferino Marshall ; Paula Hall ; Rebecca Sargent ; Haseeb Hodge ; Norma Childers ; Aman Berumen ; Willian Cotton ; Junior Espinosa ; Joyce Osborne ; Jose Manuel Reinoso ; Gus Garland ; Ja Greenwood Coding Level of Care Code D/C DAY MANAGEMENT >30 MINS Diagnoses STEMI (ST elevation myocardial infarction) I21.11 Involved coronary artery: right coronary artery Current smoker F17.200 Obesity (BMI 30-39.9) E66.9 Elevated glucose R73.09 Elevated LFTs R79.89 Inguinal hernia K40.90
--- NOTE | 2022-04-27 16:46 | Cardiology Progress Note ---
Date of Service April 27, 2022 Assessment & Plan (1) CAD (coronary artery disease): Plan: Inferior STEMI post PCI with 2 LAYLA to RCA 2. Severe nonculprit LAD disease 3. Preserved LV function, EF 50 to 55%, mild basal inferior hypokinesis 4. Dyslipidemia 5. Tobacco abuse Stable from a cardiac standpoint. No recurrent chest pain. Electrically stable. Okay for discharge today. Plan for staged PCI of severe mid LAD disease on Tuesday 05/01. Home today on DAPT with aspirin, clopidogrel, high intensity statin, metoprolol. Admission and Anticipated Discharge Date Admission Date: April 25, 2022 Subjective Feeling well today. No recurrent chest pain. No other new concerns. Telemetry reviewedno events. Review of Systems Review of Systems: All systems reviewed & are unremarkable except as noted in HPI & below Physical Exam Physical Exam: General: Comfortable HEENT: Sclerae anicteric Lungs: Clear to auscultation bilaterally, no crackles or wheezes Cardiac: Regular rate and rhythm, no murmurs. Vascular: 2+ radial. No access site complications at right [employer] Abdomen: Soft, nontender Extremities: Well perfused, no peripheral edema Neuro: Nonfocal Psych: Alert orient x3, normal affect and mood Results & Data ([facility]) Vital Signs (Past 12 Hours) Vital Signs Temp Pulse Pulse Resp BP Pulse Ox 04/27/22 15:05 98.1 F 57 L 19 110/69 97 04/27/22 12:04 65 04/27/22 11:01 98.1 F 57 L 19 110/69 97 04/27/22 07:23 98.1 F 64 20 110/81 98 PG Care Time/CCT Total # of Minutes Spent Total Time Spent with Patient: Total time spent is greater than 50% in coordination of care (as documented) at patient's floor/unit and/or counseling patient: Coding Level of Care Code 16187 Subseq Hosp Care Lvl 3 Diagnoses CAD (coronary artery disease) I25.10 Coronary Disease-Associated Artery/Lesion type: [place] artery [place] vs. transplanted heart: [place] heart Associated angina: without angina (1) CAD (coronary artery disease) Coronary Disease-Associated Artery/Lesion type: [place] artery [place] vs. transplanted heart: [place] heart Associated angina: without angina Qualified Code(s): I25.10 - Atherosclerotic heart disease of [place] coronary artery without angina pectoris
--- NOTE | 2022-04-28 18:58 | Electrocardiogram Report ---
Test Reason : Blood Pressure : / mmHG Vent. Rate : 060 BPM Atrial Rate : 060 BPM P-R Int : 190 ms QRS Dur : 092 ms QT Int : 420 ms P-R-T Axes : 064 -07 -45 degrees QTc Int : 420 ms Normal sinus rhythm Inferior infarct (cited on or before 25-APR-2022) Abnormal ECG When compared with ECG of 25-APR-2022 11:05, T wave inversion now evident in Inferior leads Confirmed by Rik Treviño ([id number]) on 04/28/2022 6:57:25 PM Referred By: Carlotta Mckeon Confirmed By:Rik Treviño
--- NOTE | 2022-04-29 06:04 | Electrocardiogram Report ---
Test Reason : Blood Pressure : / mmHG Vent. Rate : 057 BPM Atrial Rate : 057 BPM P-R Int : 180 ms QRS Dur : 094 ms QT Int : 454 ms P-R-T Axes : 052 014 -59 degrees QTc Int : 441 ms Sinus bradycardia Inferior infarct (cited on or before 25-APR-2022) Abnormal ECG When compared with ECG of 26-APR-2022 06:18, No significant change was found Confirmed by Rik Treviño ([id number]) on 04/29/2022 6:04:11 AM Referred By: Carlotta Mckeon Confirmed By:Rik Treviño
== END 2022-04-27 15:21 | disposition home or self-care (01) | DRG 247 ==
LOC: ED 09:09 → CC 09:50 → SUATTDRO 11:39 → 1E 11:39 → 2S 04-26 18:51
PROC: CLB.CCO (2022-04-25 09:45)
PROC: CLB.TTP (2022-04-25 09:45)